=== PATIENT | male | born 1955 | race American Indian/Alaskan Native ===

== ENCOUNTER 2020-01-27 23:51 | Observation (INO) | payer SELFPAY ==
--- NOTE | 2020-01-28 00:11 | Emergency Department Report ---
ED Chest Pain HPI - General Chief Complaint: Chest Pain Stated Complaint: CHEST PAIN PUI?: No Time Seen by Provider: 01/28/20 00:09 Source: patient Mode of arrival: Stretcher Limitations: No Limitations - History of Present Illness Initial Comments: Patient is a 64-year-old male that presents emergency room with complaints of chest pressure. Patient states it started at 3 PM today. Patient states the pressure is a 7 out of 10. Patient states the chest pain is worse with movement, deep breath and exertion. Patient states is better with rest. Patient states he has had 2 stents. Patient states MD Complaint: chest pain -: Sudden Onset: during rest Pain Location: substernal, left chest Pain Radiation: none Severity: severe Severity scale (0 -10): 7 Quality: pressure Consistency: constant Improves With: rest Worsens With: exertion, palpation, movement re: denies: nausea, vomting, diaphoresis, dyspnea, sense of impending doom Other Symptoms: denies: cough, fever, syncope, rash, acid taste in mouth, leg swelling, palpitations, burping Treatments Prior to Arrival: aspirin Aspirin use within the Past 7 Days: (1) Yes - Related Data On Oral Contraceptives: No Allergies Allergy/AdvReac Type Severity Reaction Status Date / Time No Known Allergies Allergy Unverified 01/27/20 23:55 Heart Score - HEART Score History: Moderately suspicious EKG: Non-specific Age: 45-65 Risk factors: > 3 risk factors or hx of atherosclerotic disease Troponin: < normal limit HEART Score: 5 ED Review of Systems ROS: Stated complaint: CHEST PAIN Other details as noted in HPI Constitutional: denies: chills, fever Eyes: denies: eye pain, eye discharge, vision change ENT: denies: ear pain, throat pain Respiratory: denies: cough, shortness of breath, wheezing Cardiovascular: chest pain. denies: palpitations Endocrine: no symptoms reported Gastrointestinal: denies: abdominal pain, nausea, diarrhea Genitourinary: denies: urgency, dysuria Musculoskeletal: denies: back pain, joint swelling, arthralgia Skin: denies: rash, lesions Neurological: denies: headache, weakness, paresthesias Psychiatric: denies: anxiety, depression Hematological/Lymphatic: denies: easy bleeding, easy bruising ED Past Medical Hx - Past Medical History Previous Medical History?: Yes Hx Hypertension: Yes Additional medical history: 1 cardiac stent, cad - Surgical History Past Surgical History?: Yes Additional Surgical History: cardiac stent - Family History Family history: no significant - Social History Smoking Status: Never Smoker Substance Use Type: None ED Physical Exam - General Limitations: No Limitations General appearance: alert, in no apparent distress - Head Head exam: Present: atraumatic, normocephalic - Eye Eye exam: Present: normal appearance - ENT ENT exam: Present: mucous membranes moist - Neck Neck exam: Present: normal inspection - Respiratory Respiratory exam: Present: normal lung sounds bilaterally. Absent: respiratory distress - Cardiovascular Cardiovascular Exam: Present: regular rate, normal rhythm. Absent: systolic murmur, diastolic murmur, rubs, gallop - GI/Abdominal GI/Abdominal exam: Present: soft, normal bowel sounds - Rectal Rectal exam: Present: deferred - Extremities Exam Extremities exam: Present: normal inspection - Back Exam Back exam: Present: normal inspection - Neurological Exam Neurological exam: Present: alert, oriented X3 - Psychiatric Psychiatric exam: Present: normal affect, normal mood - Skin Skin exam: Present: warm, dry, intact, normal color. Absent: rash ED Course Vital Signs 01/27/20 01/28/20 01/28/20 23:56 00:14 00:15 Temperature 98.2 F Pulse Rate 74 70 Respiratory 20 18 Rate Blood Pressure O2 Sat by Pulse 98 Oximetry 01/28/20 01/28/20 01/28/20 00:30 00:46 01:00 Temperature Pulse Rate 69 76 65 Respiratory 17 16 18 Rate Blood Pressure 134/78 134/78 134/78 O2 Sat by Pulse 100 96 100 Oximetry 01/28/20 01/28/20 01/28/20 01:15 01:31 01:45 Temperature Pulse Rate 64 65 79 Respiratory 19 22 16 Rate Blood Pressure 148/78 151/66 O2 Sat by Pulse 99 99 100 Oximetry 01/28/20 01/28/20 02:01 02:15 Temperature Pulse Rate 66 78 Respiratory 18 15 Rate Blood Pressure 151/66 151/66 O2 Sat by Pulse 100 Oximetry - Reevaluation(s) Reevaluation #1: I discussed all results with patient. I discussed plan of care with patient. Patient agrees with plan of care and admission. Patient to be admitted to the hospitalist service. 01/28/20 01:50 - Consultations Consultation #1: Hospitalist consulted for admission. Hospitalist to admit patient. 01/28/20 01:50 JOSEPH score - Joseph Score Age > 65: (0) No Aspirin use within the Past 7 Days: (1) Yes 3 or more CAD Risk Factors: (1) Yes 2 or more Angina events in past 24 hrs: (0) No Known CAD with more than 50% Stenosis: (0) No Elevated Cardiac Markers: (0) No ST Deviation Greater than 0.5mm: (0) No JOSEPH Score: 2 ED Medical Decision Making - Lab Data Result diagrams: 01/28/20 00:31 01/28/20 00:31 - EKG Data -: EKG Interpreted by Ks EKG shows normal: sinus rhythm, axis, intervals, QRS complexes, ST-T waves Rate: normal - Radiology Data Radiology results: report reviewed, image reviewed CHEST 1 VIEW INDICATION / CLINICAL INFORMATION: Chest Pain. COMPARISON: None available. FINDINGS: SUPPORT DEVICES: None. HEART / MEDIASTINUM: No significant abnormality. LUNGS / PLEURA: No significant pulmonary or pleural abnormality.. No pneumothorax. ADDITIONAL FINDINGS: No significant additional findings. IMPRESSION: 1. No acute findings. - Medical Decision Making Patient is a 64-year-old male that presents emergency room with complaints of chest pain. Patient has a history of CAD and a coronary stent. Patient had labs done which were essentially unremarkable. Patient had a chest x-ray which was negative for acute findings. Patient's EKG showed no STEMI. Patient admitted to the hospitalist service. Patient will be admitted to the hospital service to rule out ACS and further evaluation and treatment. - Differential Diagnosis ACS, chest pain, musculoskeletal, Critical Care Time: Yes Critical care time in (mins) excluding proc time.: 35 Critical care attestation.: If time is entered above; I have spent that time in minutes in the direct care of this critically ill patient, excluding procedure time. Critical Care Time: 35 minutes ED Disposition Clinical Impression: CAD (coronary artery disease) Qualifiers: Coronary Disease-Associated Artery/Lesion type: [place] artery [place] vs. transplanted heart: [place] heart Associated angina: with unspecified angina Qualified Code(s): I25.119 - Atherosclerotic heart disease of [place] coronary artery with unspecified angina pectoris Chest pain Qualifiers: Chest pain type: unspecified Qualified Code(s): R07.9 - Chest pain, unspecified Disposition: -09 OP ADMIT IP TO THIS HOSP Is pt being admited?: Yes Does the pt Need Aspirin: No Condition: Critical Time of Disposition: 01:52
--- NOTE | 2020-01-28 00:40 | XRay Report ---
CHEST 1 VIEW INDICATION / CLINICAL INFORMATION: Chest Pain. COMPARISON: None available. FINDINGS: SUPPORT DEVICES: None. HEART / MEDIASTINUM: No significant abnormality. LUNGS / PLEURA: No significant pulmonary or pleural abnormality.. No pneumothorax. ADDITIONAL FINDINGS: No significant additional findings. IMPRESSION: 1. No acute findings. Signer Name: Yuri Robles MD Signed: 01/28/2020 12:35 AM Workstation Name: [id number]
[2020-01-28 00:59] LABS: Basophils % (Auto) 0.7 % (0.0-1.8); Eosinophils # (Auto) 0.2 K/mm3 (0.0-0.4); Eosinophils % (Auto) 2.2 % (0.0-4.3); Hematocrit 39.6 % (35.5-45.6); Lymphocytes # (Auto) 2.4 K/mm3 (1.2-5.4); Lymphocytes % (Auto) 34.7 % (13.4-35.0); Mean Corpuscular HGB Conc 33 % (32-34); Mean Corpuscular Volume 92 fl (84-94); Monocytes # (Auto) 0.5 K/mm3 (0.0-0.8); Monocytes % (Auto) 7.6 % (0.0-7.3); Platelet Count 208 K/mm3 (140-440); Red Blood Count 4.33 M/mm3 (3.65-5.03); Red Cell Distribution Width 14.4 % (13.2-15.2)
[2020-01-28 01:20] LABS: BUN/Creatinine Ratio 27; Blood Urea Nitrogen 19 mg/dL (9-20); Hemolysis Index 1
[2020-01-28 01:26] LABS: Creatine Kinase MB < 1.0 ng/mL (0.0-4.0)
[2020-01-28] MEDS ORDERED: NITROGLYCERIN 0.4 MG TAB SUBL SL PRN (02:40)
[2020-01-28] MEDS ORDERED: MAGNESIUM HYDROXIDE (MOM) ORAL LIQD UDC PO PRN (02:40)
[2020-01-28] MEDS ORDERED: ACETAMINOPHEN 325 MG TAB PO PRN (02:40)
[2020-01-28] MEDS ORDERED: ONDANSETRON 4 MG/2 ML INJ IV PRN (02:40)
--- NOTE | 2020-01-28 02:54 | History and Physical Report ---
History of Present Illness Date of examination: 01/28/20 Date of admission: 01/28/2020 Chief complaint: Chest Pain History of present illness: 64-year-old male with known history of coronary artery disease with stent placement in the past presenting to the emergency room today complaining of chest pain. Chest pain was said to have started a few hours prior to reporting to the emergency room chest pain felt like pressure in the substernal area and on a scale of 10 was about 7-8 over 10 in severity. Chest pain is made worse by exertion and feels better on resting. He denies any fever or chills, no nausea vomiting, no diarrhea and no abdominal pain. No headache or dizziness. He denies any sick contacts and no recent travel. Work-up so far in the emergency room has been unremarkable. Past History Past Medical History: CAD Past Surgical History: PTCA Social history: no significant social history Family history: no significant family history Medications and Allergies Allergies Allergy/AdvReac Type Severity Reaction Status Date / Time No Known Allergies Allergy Unverified 01/27/20 23:55 Review of Systems Constitutional: no fever, no chills Cardiovascular: chest pain, shortness of breath, no orthopnea, no palpitations Respiratory: no cough, no shortness of breath Gastrointestinal: no abdominal pain, no nausea, no vomiting, no diarrhea Genitourinary Male: no dysuria, no hematuria Musculoskeletal: no neck pain, no low back pain Integumentary: no rash, no pruritis Neurological: no headaches, no change in mentation Exam - Constitutional Vitals: Temp Pulse Resp BP Pulse Ox 98.2 F 78 15 151/66 100 01/27/20 23:56 01/28/20 02:15 01/28/20 02:15 01/28/20 02:15 01/28/20 02:01 General appearance: Present: no acute distress, well-nourished - EENT Eyes: Present: PERRL, EOM intact ENT: hearing intact, clear oral mucosa, dentition normal - Neck Neck: Present: supple, normal ROM - Respiratory Respiratory effort: normal Respiratory: bilateral: CTA - Cardiovascular Rhythm: regular Heart Sounds: Present: S1 & S2 - Extremities Extremities: no ischemia, pulses intact, pulses symmetrical, No edema, Full ROM Peripheral Pulses: within normal limits - Abdominal General gastrointestinal: Present: soft, non-tender, non-distended - Integumentary Integumentary: Present: clear, warm, dry - Musculoskeletal Musculoskeletal: strength equal bilaterally - Psychiatric Psychiatric: appropriate mood/affect, intact judgment & insight, cooperative - Neurologic Neurologic: CNII-XII intact, moves all extremities HEART Score - HEART Score EKG: Non-specific Age: 45-65 Risk factors: > 3 risk factors or hx of atherosclerotic disease Troponin: Troponin T < 0.010 ng/mL (0.00-0.029) 01/28/20 00:31 Troponin: < normal limit Results - Labs CBC & Chem 7: 01/28/20 00:01/28/20 00:31 Labs: Abnormal lab results 01/28/20 01/28/20 01/28/20 Range/Units : 00: 00:31 Mcdonald % (Auto) 7.6 H (0.0-7.3) % Creatinine 0.7 L (0.8-1.5) mg/dL Total Creatine Kinase 46 L (55-170) units/L Assessment and Plan - Patient Problems (1) Chest pain Current Visit: Yes Status: Acute Qualifiers: Chest pain type: unspecified Qualified Code(s): R07.9 - Chest pain, unspecified Plan to address problem: Patient admitted and placed on telemetry. Will check serial cardiac enzymes. Patient be placed on sublingual nitroglycerin and IV morphine as needed for chest pain. We also placed on daily aspirin. We will place a consult to cardiology for further evaluation and recommendation. (2) CAD (coronary artery disease) Current Visit: Yes Status: Acute Qualifiers: Coronary Disease-Associated Artery/Lesion type: [place] artery [place] vs. transplanted heart: [place] heart Associated angina: with unspecified angina Qualified Code(s): I25.119 - Atherosclerotic heart disease of [place] coronary artery with unspecified angina pectoris Plan to address problem: Patient has had 2 stents placements in the past. We will continue with his routine home medications. (3) DVT prophylaxis Current Visit: Yes Status: Acute Plan to address problem: Patient placed on subcutaneous heparin. (4) Full code status Current Visit: Yes Status: Acute
[2020-01-28] MEDS ORDERED: HEPARIN 5,000 UNIT/1 ML VIAL SUB-Q SCH (06:00)
[2020-01-28 06:26] LABS: Basophils % (Auto) 0.3 % (0.0-1.8); Eosinophils # (Auto) 0.2 K/mm3 (0.0-0.4); Hematocrit 40.5 % (35.5-45.6); Hemoglobin 13.6 gm/dl (11.8-15.2); Lymphocytes # (Auto) 2.3 K/mm3 (1.2-5.4); Mean Corpuscular HGB Conc 34 % (32-34); Mean Corpuscular Volume 92 fl (84-94); Monocytes # (Auto) 0.4 K/mm3 (0.0-0.8); Monocytes % (Auto) 7.5 % (0.0-7.3); Platelet Count 180 K/mm3 (140-440); Red Cell Distribution Width 14.1 % (13.2-15.2)
[2020-01-28 06:37] LABS: BUN/Creatinine Ratio 20; Blood Urea Nitrogen 16 mg/dL (9-20); Hemolysis Index 7
[2020-01-28 06:52] LABS: Chol/HDL Ratio 2.79 %
[2020-01-28] MEDS ORDERED: REGADENOSON 0.4 MG/5 ML INJ IV ONE ×2 (08:01→08:04)
--- NOTE | 2020-01-28 10:31 | Consultation ---
History of Present Illness Consult date: 01/28/20 Consult reason: chest pain History of present illness: The patient is a 64-year-old man admitted to the hospital with poorly charact erized, atypical and nonexertional chest pain. He describes a history of coronary artery disease and coronary stent placement about 2 years ago at [facility]. He admits to poor compliance with his outpatient cardiology follow-up, has not seen his audio production engineer in many months. On this presentation, the ECG is normal sinus rhythm with no acute ST or T wave abnormalities. Essentially a normal ECG. Cardiac troponin levels were normal. Chest x-ray is a normal cardiac silhouette and clear lungs. The patient has undergone a Lexiscan thallium stress test, results are pending. Past History Past Medical History: CAD, hypertension Past Surgical History: PTCA Social history: no significant social history Family history: no significant family history Medications and Allergies Allergies Allergy/AdvReac Type Severity Reaction Status Date / Time No Known Allergies Allergy Unverified 01/27/20 23:55 Active Meds: Active Medications Acetaminophen (Tylenol) 650 mg PO Q4H PRN PRN Reason: Pain MILD(1-3)/Fever >100.5/[place] Aspirin (Ecotrin) 325 mg PO QDAY [facility] Heparin Sodium (Porcine) (Heparin) 5,000 unit SUB-Q Q8HR [facility] Last Admin: 01/28/20 06:46 Dose: 5,000 unit Documented by: Magnesium Hydroxide (Milk Of Magnesia) 30 ml PO Q4H PRN PRN Reason: Constipation Nitroglycerin (Nitrostat) 0.4 mg SL Q5M PRN PRN Reason: Chest Pain Ondansetron HCl (Zofran) 4 mg IV Q8H PRN PRN Reason: Nausea And Vomiting Sodium Chloride (Sodium Chloride Flush Syringe 10 Ml) 10 ml IV BID ALEXA Sodium Chloride (Sodium Chloride Flush Syringe 10 Ml) 10 ml IV PRN PRN PRN Reason: LINE FLUSH Review of Systems Cardiovascular: chest pain, no orthopnea, no palpitations, no rapid/irregular heart beat, no edema, no syncope, no lightheadedness, no shortness of breath Physical Examination Vital Signs Temp 98.2 F 01/27/20 23:56 General appearance: no acute distress HEENT: Positive: PERRL Neck: Positive: neck supple Cardiac: Positive: Reg Rate and Rhythm Lungs: Positive: clear to auscultation Neuro: Positive: Grossly Intact Abdomen: Positive: Soft Male genitourinary: Positive: deferred Skin: Positive: Clear Extremities: Absent: edema Results 01/28/20 05:47 01/28/20 05:47 Cardiac Enzymes 01/28/20 Range/Units 00:31 CK-MB (CK-2) < 1.0 (0.0-4.0) ng/mL Lipids 01/28/20 Range/Units 05:47 Triglycerides 73 (2-149) mg/dL Cholesterol 137 (50-199) mg/dL HDL Cholesterol 49 (40-59) mg/dL Cholesterol/HDL Ratio 2.79 % CBC 01/28/20 01/28/20 Range/Units 00:31 05:47 WBC 7.0 5.9 (4.5-11.0) K/mm3 RBC 4.33 4.40 (3.65-5.03) M/mm3 Hgb 13.0 13.6 (11.8-15.2) gm/dl Hct 39.6 40.5 (35.5-45.6) % Plt Count 208 180 (140-440) K/mm3 Lymph # 2.4 2.3 (1.2-5.4) K/mm3 Powell # 0.5 0.4 (0.0-0.8) K/mm3 Eos # 0.2 0.2 (0.0-0.4) K/mm3 Baso # 0.0 0.0 (0.0-0.1) K/mm3 Comprehensive Metabolic Panel 01/28/20 01/28/20 Range/Units 00:31 05:47 Sodium 141 142 (137-145) mmol/L Potassium 4.1 4.1 (3.6-5.0) mmol/L Chloride 105.4 107.8 H (98-107) mmol/L Carbon Dioxide 25 25 (22-30) mmol/L BUN 19 16 (9-20) mg/dL Creatinine 0.7 L 0.8 (0.8-1.5) mg/dL Glucose 96 95 (75-100) mg/dL Calcium 9.0 9.0 (8.4-10.2) mg/dL EKG interpretations - Telemetry EKG Rhythm: Sinus Rhythm Assessment and Plan - Patient Problems (1) Chest pain Current Visit: Yes Status: Acute Qualifiers: Chest pain type: unspecified Qualified Code(s): R07.9 - Chest pain, unspecified Plan to address problem: Patient's ECG is benign, cardiac troponin levels are normal. A Lexiscan thallium stress test has been completed, results are pending. (2) CAD (coronary artery disease) Current Visit: Yes Status: Acute Qualifiers: Coronary Disease-Associated Artery/Lesion type: [place] artery [place] vs. transplanted heart: [place] heart Associated angina: with unspecified angina Qualified Code(s): I25.119 - Atherosclerotic heart disease of [place] coronary artery with unspecified angina pectoris Plan to address problem: We will recommend aggressive risk factor modification and guideline directed medical therapy including beta-blockers, aspirin and statin therapy as tolerated.
[2020-01-28 10:40] VITALS: BP 131/62
--- NOTE | 2020-01-28 11:17 | Discharge Summary ---
Providers - Providers Date of Admission: 01/28/20 02:43 Date of discharge: 01/28/20 Attending physician: SRINIVASA CARLISLE 01/28/20 Consult to Cardiac Rehabilitation [CONS] Routine Reason For Exam: Phase I 01/28/20 02:40 Consult to Physician [CONS] Routine Comment: Consulting Provider: DAVID CHEN Physician Instructions: Reason For Exam: chest pain Primary care physician: ANIMAL GROOMER Hospitalization Reason for admission: cp Condition: Critical Hospital course: 64-year-old male presents through the emergency department with complaints of chest pain. EKG revealed normal sinus rhythm with no acute ST-T wave changes. Cardiac isoenzymes are found to be normal. Chest x-ray revealed normal cardiac silhouette and no evidence of infiltrate. The patient was admitted with diagnosis of chest pain and underwent Lexiscan stress test. If the stress test is found to be normal patient will likely discharge home with further follow-up as an outpatient. Etiology of chest pain likely secondary to GERD and presence of negative stress test Disposition: TO HOME OR SELFCARE Time spent for discharge: 35 - Discharge Diagnoses (1) CAD (coronary artery disease) Status: Acute Qualifiers: Coronary Disease-Associated Artery/Lesion type: [place] artery [place] vs. transplanted heart: [place] heart Associated angina: with unspecified angina Qualified Code(s): I25.119 - Atherosclerotic heart disease of [place] coronary artery with unspecified angina pectoris (2) Chest pain Status: Acute Qualifiers: Chest pain type: unspecified Qualified Code(s): R07.9 - Chest pain, unspecified Core Measure Documentation - Palliative Care Palliative Care/ Comfort Measures: Not Applicable - Core Measures Any of the following diagnoses?: none Exam - Constitutional Vitals: Temp Pulse Resp BP Pulse Ox 98.2 F 75 15 131/62 99 01/27/20 23:56 01/28/20 10:39 01/28/20 10:39 01/28/20 10:39 01/28/20 10:39 General appearance: Present: no acute distress, well-nourished - EENT Eyes: Present: PERRL ENT: hearing intact, clear oral mucosa - Neck Neck: Present: supple, normal ROM - Respiratory Respiratory effort: normal Respiratory: bilateral: CTA - Cardiovascular Heart Sounds: Present: S1 & S2. Absent: rub, click - Extremities Extremities: pulses symmetrical, No edema Peripheral Pulses: within normal limits - Abdominal General gastrointestinal: Present: soft, non-tender, non-distended, normal bowel sounds Male genitourinary: Present: normal - Integumentary Integumentary: Present: clear, warm, dry - Musculoskeletal Musculoskeletal: gait normal, strength equal bilaterally - Psychiatric Psychiatric: appropriate mood/affect, intact judgment & insight - Neurologic Neurologic: CNII-XII intact, moves all extremities Plan Activity: advance as tolerated Weight Bearing Status: Weight Bear as Tolerated Diet: low fat, low cholesterol, low salt Follow up with: PRIMARY CAREMD [Primary Care Provider] - 7 Days DAVID CHEN MD [Staff Physician] - 7 Days
--- NOTE | 2020-01-28 20:18 | Treadmill Report ---
THALLIUM STRESS TEST REPORT LEFT VENTRICLE: Left ventricle appears mildly dilated. Perfusion study demonstrates a small fixed apical defect consistent with normal apical thinning. There is evidence of diaphragmatic attenuation artifact. Otherwise, no significant perfusion defects identified. Gated analysis demonstrates mild left ventricular systolic dysfunction with ejection fraction calculated at 42%. CONCLUSION: Evidence of mild dilated cardiomyopathy with mild left ventricular systolic dysfunction. The perfusion study demonstrates no significant perfusion defects, no ischemia demonstrated on this study. Clinical correlation is recommended. JOB# [id number] CA/NTS
[2020-01-29] MEDS ORDERED: ASPIRIN EC 325 MG TAB PO SCH (10:00)
== END 2020-01-28 12:00 | disposition home or self-care (01) ==
LOC: ED 23:51 → 4A 01-28 02:43
PROVIDERS: ADMIT Internal Medicine Geriatric Medicine; ATTEND Hospitalist
DX: R07.89 Other chest pain (principal); I25.119 Atherosclerotic heart disease of native coronary artery with unspecified angina pectoris; I10 Essential (primary) hypertension; Z95.5 Presence of coronary angioplasty implant and graft; Z79.82 Long term (current) use of aspirin; Z79.899 Other long term (current) drug therapy
CPT/HCPCS: 36415; 71045; 78452; 80048; 80061; 82550; 82553; 84484; 85025; 93005; 93017; 96372; 99291; A9502; G0378; J2785